=== PATIENT | female | born 1980 | race Caucasian/White ===

== ENCOUNTER 2016-07-10 13:46 | Outpatient (CLI) ==
[2016-07-10 14:09] LABS: BASOPHILS % (AUTO) 0.5 % (0.0-3.0); EOSINOPHILS # (AUTO) 0.2 K/ul (0.0-0.7); HEMATOCRIT 35.8 % (37.0-47.0); HEMOGLOBIN 12.8 g/dl (12.0-16.0); IMMATURE GRANULOCYTE % (AUTO) 0.2 % (0.0-5.0); LYMPHOCYTES # (AUTO) 1.6 K/uL (0.60-3.4); LYMPHOCYTES % (AUTO) 35.9 (10.0-50.0); MEAN CORPUSCULAR HEMOGLOBIN 32.8 pg (27.0-31.0); MEAN CORPUSCULAR HGB CONC 35.8 (31.8-35.4); MEAN CORPUSCULAR VOLUME 91.8 fl (81.0-99.0); MONOCYTES # (AUTO) 0.3 K/uL (0.4-2.0); MONOCYTES % (AUTO) 6.8 (0-10); NEUTROPHILS # (AUTO) 2.3 K/ul (2.0-6.9); NEUTROPHILS % (AUTO) 51.6; PLATELET COUNT 240 10^3/uL (140-440)
[2016-07-10 15:02] LABS: ALBUMIN 3.8 g/dL (3.4-5.0); ALBUMIN/GLOBULIN RATIO 1.19; BILIRUBIN,TOTAL 0.59 mg/dL (0.00-1.20); BUN/CREATININE RATIO 12.79; CALCIUM 9.3 mg/dL (8.2-10.2); CHOL/HDL RATIO 3.4 (4.5-5.5); CREATININE 0.86 mg/dL (0.60-1.30)
== END 2016-07-10 13:47 | disposition home or self-care (01) ==
LOC: LAB 13:46
PROVIDERS: ATTEND Nurse Practitioner Family
DX: Z71.3 Dietary counseling and surveillance (principal)
CPT/HCPCS: 36415; 80053; 80061; 84439; 84443; 85025; 93005; 93010

== ENCOUNTER 2016-07-17 07:37 | Outpatient (CLI) ==
--- NOTE | 2016-07-17 08:41 | CT ---
EXAM: CT of the soft tissue neck with and without contrast History: Right neck palpable abnormality. Technique: Multiplanar CT images through the soft tissue neck were obtained with and without the ad ministration of IV contrast Findings: The visualized lung apices are clear. The visualized paranasal sinuses and mastoid air c ells are clear. No acute osseous abnormalities. Epiglottis is not thickened. No prevertebral soft tissue swelling. The visualized intracranial contents demonstrate no acute findings. Orbits are i ntact. No parotid or submandibular inflammation. No peritonsillar inflammation. No discrete thyro id nodules. No pathologically enlarged neck lymph nodes. The palpable abnormality in the right nec k corresponds to a normal sized lymph node measuring 4 mm in short axis diameter. Impression: No acute or significant findings.
== END 2016-07-17 07:38 | disposition home or self-care (01) ==
LOC: RAD 07:37
PROVIDERS: ATTEND Nurse Practitioner Family
DX: R22.1 Localized swelling, mass and lump, neck (principal)

== ENCOUNTER 2016-08-14 11:40 | Outpatient (CLI) | END 2016-08-14 11:41 | disposition home or self-care (01) | LOC: LAB 11:40 | PROVIDERS: ATTEND Nurse Practitioner Family | DX: J02.9 Acute pharyngitis, unspecified (principal) | CPT/HCPCS: 87651; 87880 ==

== ENCOUNTER → 2017-03-27 | Outpatient (POV) | LOC: OUTPT 00:01 | PROVIDERS: ATTEND Otolaryngology | DX: H92.09 Otalgia, unspecified ear (principal); G51.0 Bell's palsy | CPT/HCPCS: 92557; 92567 ==

== ENCOUNTER 2017-09-12 10:20 | Outpatient (CLI) | END 2017-09-12 10:21 | disposition home or self-care (01) | LOC: FCC-LAB 10:20 | PROVIDERS: ATTEND Nurse Practitioner Family | DX: Z71.3 Dietary counseling and surveillance (principal) | CPT/HCPCS: 36415; 80053; 80061; 81025; 82607; 82672; 83001; 83002; 83519; 83525; 84402; 84439; 84443; 85025 ==

== ENCOUNTER 2017-10-04 11:52 | Outpatient (CLI) ==
[2017-10-04 13:32] VITALS: BMI 28.3
== END 2017-10-04 11:53 | disposition home or self-care (01) ==
LOC: DIETCN 11:52
PROVIDERS: ATTEND Nurse Practitioner Family
DX: Z71.3 Dietary counseling and surveillance (principal)
CPT/HCPCS: 97802